=== PATIENT | female | born 1995 | race American Indian/Alaskan Native ===

== ENCOUNTER 2019-10-27 15:28 | Emergency (ER) | payer MEDICAID ==
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
[2019-10-27 22:25] VITALS: BP 124/76
== END 2019-10-27 22:25 | disposition home or self-care (01) ==
LOC: ED 15:28
DX: H10.022 Other mucopurulent conjunctivitis, left eye (principal); F17.200 Nicotine dependence, unspecified, uncomplicated; Z79.899 Other long term (current) drug therapy
CPT/HCPCS: 99282

== ENCOUNTER 2022-06-16 21:44 | Emergency (ER) | payer MEDICAID | END 2022-06-16 22:50 | disposition left against medical advice (07) | LOC: ED 21:44 | DX: O26.899 Other specified pregnancy related conditions, unspecified trimester (principal); R10.9 Unspecified abdominal pain; Z53.21 Procedure and treatment not carried out due to patient leaving prior to being seen by health care provider; Z3A.00 Weeks of gestation of pregnancy not specified ==